=== PATIENT | female | born 1985 ===

== ENCOUNTER 2023-01-28 18:09 | Emergency (ER) | payer OTHER ==
[~2023-01-28] VITALS: Ht 170 cm; Wt 82.0 kg
[2023-01-28 18:17] VITALS: BP 147/85
[2023-01-28] MEDS ORDERED: NS IV 1000 ML 1,000 ML IV STA (18:24)
[2023-01-28] MEDS ORDERED: MECLIZINE 25 MG TABLET PO STA (18:24)
[2023-01-28] MEDS ORDERED: dexAMETHasone INJ 10 MG/ML 1 ML VIAL IV STA (18:24)
[2023-01-28] MEDS ORDERED: KETOROLAC INJ 30 MG/ML VIAL IVP STA (18:24)
[2023-01-28] MEDS ORDERED: ONDANSETRON INJECTION 4 MG/2 ML (SDV) IVP STA (18:24)
--- NOTE | 2023-01-28 18:33 | ED Headache ---
General Chief Complaint: Head/Cervical Problems Stated Complaint: MIGRAINE FOR A MONTH, DIZZY Nursing Triage Note: Patient has presented to ER with cc of a headache for the last month. She reports a migraine for the last month. She went to urgent care last week and received a shot of torodal it helped some but did get rid of the headahce. This past week she has developed a rash on the left side of her face. She has pain in her neck. She has not seen her doctor and went to urgent care this afternoon and was sent to ER for evaluation. Source: patient, RN/MD (Karla Estrada APRN, [facility] called to state patient had been seen Jan 24 for migraine and sinusitis. Treated with Toradol, Augmentin and Prednisone. Now with rash and worse headache with vertigo.) History of Present Illness Date Seen by Provider: Jan 28, 2023 Time Seen by Provider: 18:12 Initial Comments 38-year-old female presenting with complaints of a migraine headache that has been going on for the last month. She rates her pain at 11 or 12 but states that it is a discomfort. She also states that she cannot specifically describe it but just that it hurts. She does have a history of migraine headaches and takes topiramate at night and when she has an acute headache she takes sumatriptan. [facility] on January [facility] and they had given her a Toradol shot as well as prescribed her cyclobenzaprine, Augmentin and prednisone for sinus headache. She states that she has had a rash on the left side of her face since January 19. She states that she has been having pain and stiffness in her neck as well. She did not feel like the Toradol shot did much to help with her headache but felt the prednisone did not seem to help with some facial swelling that she associated with the rash on the left side of her face. She states the rash now has a burning pain and is spread into her hair and scalp. She denies any difficulty with vision but does have photosensitivity. She has had nausea but no vomiting. Since getting treated with the Toradol, cyclobenzaprine, Augmentin, prednisone she has felt like the headache is gotten worse as well as she now is having vertigo symptoms with it. She has an appointment on Thursday to be seen at [facility] but felt like her symptoms were worse today so she went back to walking care. They referred her here to the emergency department since her headache was worse. Timing/Duration: constant, increasing Severity/Quality: severe, constant Location: other (Left-sided) Prior Headaches/Recent Trauma: chronic headaches (History of migraine headaches) Modifying Factors: worse with exposure to light, worse with movement Associated Symptoms: confusion, fatigue, facial pain; No fever/chills, No flushing, No loss of consciousness; nausea/vomiting (Nausea but no vomiting); No nasal congestion, No nasal drainage, No numbness in legs/feet; rash (Vesicular rash on the forehead and scalp on the left side); No seizures, No sinus infection; stiff neck; No vision changes, No weakness Allergies and Home Medications Allergies Coded Allergies: Sulfa (Sulfonamide Antibiotics) (Verified Allergy, Unknown, 01/28/23) Patient Home Medication List Home Medication List Reviewed: Yes Ondansetron (Ondansetron Odt) 4 Mg Tab.rapdis, 4 MG PO Q6H PRN for NAUSEA/VOMITING Prescribed by: SEKOU ABDI on 01/28/231955 Oxycodone HCl/Acetaminophen (Oxycodone-Acetaminophen 5-325) 5 Mg-325 Mg Tablet, 1 EACH PO Q4H PRN for PAIN SEVERE Prescribed by: SEKOU ABDI on 01/28/231956 Valacyclovir HCl (Valacyclovir) 1,000 Mg Tablet, 1,000 MG PO TID Prescribed by: SEKOU ABDI on 01/28/231955 Review of Systems Review of Systems Constitutional: No chills; dizziness (vertigo); No fever Eyes: Denies Blurred Vision; Photophobia Ears, Nose, Mouth, Throat: denies ear pain, denies ear discharge, denies nose pain, denies nose discharge, denies epistaxis Respiratory: No cough Cardiovascular: No chest pain Gastrointestinal: nausea; No vomiting Genitourinary: No dysuria : No Musculoskeletal: see HPI Skin: see HPI, rash (left forehead and scalp) Psychiatric/Neurological: Headache; Denies Numbness, Denies Paresthesia Past [id number] Hx Patient Social History Tobacco Use?: Yes Tobacco type used: Cigarettes Substance use?: No Alcohol Use?: Yes Alcohol Frequency: Once in a while Past Medical History Surgery/Hospitalization HX: Migraine Headaches Physical Exam Vital Signs Vital Signs - First Documented 01/28/23 18:17 Temp 36.8 Pulse 82 Resp 16 B/P (MAP) 147/85 (105) Pulse Ox 98 O2 Delivery Room Air Capillary Refill : Height, Weight, BMI Height: '" Weight: lbs. oz. kg; 28.00 BMI Method: General Appearance: WD/WN, mild distress HEENT: PERRL/EOMI, pharynx normal, photophobia, other (vesicular erythematous rash to left forehead and into scalp. Does not cross the midline or extend onto nose or eye) Neck: full range of motion (has full range of motion but states that she feels like her neck is stiff) Cardiovascular: normal peripheral pulses, regular rate, rhythm Respiratory: chest non-tender, lungs clear, normal breath sounds, no respiratory distress, no accessory muscle use Gastrointestinal: normal bowel sounds, non tender, soft Extremities: normal range of motion, non-tender, normal capillary refill Psychiatric: alert, oriented x 3 Crainal Nerves: normal hearing, normal speech, PERRL Coordination/Gait: normal gait Motor/Sensory: no motor deficit, no sensory deficit Skin: warm/dry, rash (left forehead and scalp, does not cross midline or extend to nose or eye. has erythematous vesicular appearance.) Progress/Results/Core Measures Results/Orders Lab Results Laboratory Tests Test 01/28/23 18:23 01/28/23 18:25 Range/Units White Blood Count 10.9 4.3-11.0 10^3/uL Red Blood Count 4.96 3.80-5.11 10^6/uL Hemoglobin 15.6 11.5-16.0 g/dL Hematocrit 45 35-52 % Mean Corpuscular Volume 91 80-99 fL Mean Corpuscular Hemoglobin 32 25-34 pg Mean Corpuscular Hemoglobin Concent 35 32-36 g/dL Red Cell Distribution Width 12.7 10.0-14.5 % Platelet Count 281 130-400 10^3/uL Mean Platelet Volume 9.8 9.0-12.2 fL Immature Granulocyte % (Auto) 1 % Neutrophils (%) (Auto) 89 H 42-75 % Lymphocytes (%) (Auto) 7 L 12-44 % Monocytes (%) (Auto) 4 0-12 % Eosinophils (%) (Auto) 0 0-10 % Basophils (%) (Auto) 0 0-10 % Neutrophils # (Auto) 9.7 H 1.8-7.8 10^3/uL Lymphocytes # (Auto) 0.7 L 1.0-4.0 10^3/uL Monocytes # (Auto) 0.4 0.0-1.0 10^3/uL Eosinophils # (Auto) 0.0 0.0-0.3 10^3/uL Basophils # (Auto) 0.0 0.0-0.1 10^3/uL Immature Granulocyte # (Auto) 0.1 0.0-0.1 10^3/uL Neutrophils % (Manual) 83 % Lymphocytes % (Manual) 3 % Monocytes % (Manual) 3 % Band Neutrophils 7 % Atypical Lymphocytes 4 % Platelet Estimate ADEQUATE Blood Morphology Comment NORMAL Sodium Level 141 135-145 MMOL/L Potassium Level 4.1 3.6-5.0 MMOL/L Chloride Level 107 98-107 MMOL/L Carbon Dioxide Level 26 21-32 MMOL/L Anion Gap 8 5-14 MMOL/L Blood Urea Nitrogen 13 7-18 MG/DL Creatinine 0.73 0.60-1.30 MG/DL Estimat Glomerular Filtration Rate 107 BUN/Creatinine Ratio 18 Glucose Level 101 70-105 MG/DL Calcium Level 9.0 8.5-10.1 MG/DL Corrected Calcium 8.8 8.5-10.1 MG/DL Total Bilirubin 0.3 0.1-1.0 MG/DL Aspartate Amino Transf (AST/SGOT) 8 5-34 U/L Alanine Aminotransferase (ALT/SGPT) 9 0-55 U/L Alkaline Phosphatase 66 40-136 U/L C-Reactive Protein < 0.30 <0.50 MG/DL Total Protein 7.3 6.4-8.2 GM/DL Albumin 4.3 3.2-4.5 GM/DL Urine Color YELLOW Urine Clarity CLEAR Urine pH 7.0 5-9 Urine Specific [place] 1.015 L 1.016-1.022 Urine Protein NEGATIVE NEGATIVE Urine Glucose (UA) NEGATIVE NEGATIVE Urine Ketones NEGATIVE NEGATIVE Urine Nitrite NEGATIVE NEGATIVE Urine Bilirubin NEGATIVE NEGATIVE Urine Urobilinogen 0.2 < = 1.0 MG/DL Urine Leukocyte Esterase NEGATIVE NEGATIVE Urine RBC (Auto) TRACE-I H NEGATIVE Urine RBC 2-5 H /HPF Urine WBC 0-2 /HPF Urine Squamous Epithelial Cells 5-10 /HPF Urine Crystals NONE /LPF Urine Bacteria NEGATIVE /HPF Urine Casts NONE /LPF Urine Mucus NEGATIVE /LPF Urine Culture Indicated NO My Orders Orders - SEKOU ABDI MD Comprehensive Metabolic Panel (01/28/23 18:22) Ua Culture If Indicated (01/28/23 18:22) Ed Iv/Invasive Line Start (01/28/23 18:22) Cbc And Automated Diff (01/28/23 18:22) Urine Bedside (01/28/23 18:22) Crp Fs (01/28/23 18:22) Ct Head/Maxillofacial Wo (01/28/23 18:24) Ns Iv 1000 Ml (Ns Iv 1000 Ml) (01/28/23 18:24) Ketorolac Injection (Ketorolac Injection (01/28/23 18:24) Ondansetron Injection (Ondansetron Inj (01/28/23 18:24) Dexamethasone Injection (Dexamethasone (01/28/23 18:24) Meclizine Tablet (Meclizine Tablet) (01/28/23 18:24) Manual Differential (01/28/23 18:23) Rx-Ondansetron Po (Rx-Zofran Po) (01/28/23 19:39) Rx-Oxycodone/Apap 5-325 Mg (Rx-Percocet (01/28/23 19:39) Vital Signs/I&O 01/28/23 18:17 Temp 36.8 Pulse 82 Resp 16 B/P (MAP) 147/85 (105) Pulse Ox 98 O2 Delivery Room Air Blood Pressure Mean: 105 Progress Progress Note #1: Progress Note Differential diagnosis includes herpes zoster, herpes encephalitis, herpes meningitis, atypical migraine headache, intracranial hemorrhage, brain tumor, sinusitis. Obtain peripheral IV access and send labs for complete blood count, CRP, comprehensive metabolic profile, urinalysis, bedside urine . CT scan of the head maxillofacial area without contrast to look for acute pathology to be contributing to her symptoms. Administer normal saline 1 L IV fluid bolus for hydration, Toradol 30 mg IV for headache and pain, dexamethasone 10 mg IV for headache and pain, Zofran 4 mg IV for nausea. Patient states that she does not have anybody to give her a ride back to [place] where she lives. She drove herself here to the emergency department. Progress Note #2: Time: 18:45 Progress Note Bedside urine test is negative. Urinalysis had a specific gravity of 1.015 with trace red blood cells. There is no sign of infection. Complete blood count had white blood cell count at upper limit of normal at 10.9. This would go along with her being on steroids recently. Her hemoglobin was normal at 15.6 and platelets 281. 1903 comprehensive metabolic profile did not show any acute electrolyte abnormalities. She had a normal BUN and creatinine 13 and 0.73. Glucose was normal at 101. CRP was less than 0.3 to go against any large inflammatory process. However she has been on steroids since the second as well. I did not appreciate any acute significant abnormalities on my personal interpretation and review of the CT scan of the head and maxillofacial area without IV contrast. Awaiting radiology reading. [address] scan of the head and maxillofacial without IV contrast is no acute process and no sign of sinusitis. Will check on the patient and see if she has had any improvement of her symptoms. Will plan on treating her with antivirals for what appears to be a shingles outbreak. Progress Note #3: Time: 19:30 Progress Note On recheck of the patient she states that her headache is down to maybe a 10. I reviewed with her the results of the CT scan did not show any sinusitis, stroke, mass, bleeding. Her labs had all looked okay as well. However with her continued to have pain she could have encephalitis or meningitis from the shingles and the virus. I discussed the option of getting her admitted so additional testing can be done as well as getting antiviral medications started and controlling her pain and nausea. Patient voiced understanding of this option but did not want to be admitted. I offered to get her some pain medicine and nausea medicine by mouth as well as try and get her started on antivirals here tonight. However, the medications available here in the emergency department did not include any antivirals. In light of that she wanted to try the oral medicines at home. She wanted to try taking the medicine by mouth and see if that would help before she had to be admitted to the hospital. She states that she does have an appointment on Thursday at the [facility] clinic. I counseled her that we could try doing the stronger pain medicine which would be a narcotic as well as a nausea medicine and get her started on antivirals. If she was not any better or felt like her symptoms were worse on Thursday she could have them arrange for additional testing or get her admitted if need be. Will give her a note to be off work at least through Thursday. If she needed more days when she is seen on Thursday she could set that up, and get a new note. Also counseled for symptoms seem to be worsening before she was seen she could always return or call 911 and we could get her admitted to the hospital for additional treatment and testing. Diagnostic Imaging Diagonstic Imaging: CT Plain Films/CT/US/NM/MRI: facial bones, head Comments [facility]. [place], [place] NAME: SAVANAH MYLES [facility] REC#: [id number] PT STATUS: REG ER : 1985 PHYSICIAN: SEKOU ABDI MD ADMIT DATE: 01/28/23/ER FS Draft Date of Exam:01/28/23 CT HEAD/MAXILLOFACIAL WO PROCEDURE: CT head and maxillofacial without contrast. TECHNIQUE: Multiple contiguous axial images were obtained through the head and facial bones without the use of intravenous contrast. Auto Exposure Controls were utilized during the CT exam to meet ALARA standards for radiation dose reduction. INDICATION: Worsening left-sided headache and rash. EXAMINATION: CT brain, CT maxillofacial 01/28/2023 Brain: There is no acute hemorrhage or infarct. No mass, mass effect or midline shift. No hydrocephalus. No fractures identified. Paranasal sinuses and mastoid air cells clear. IMPRESSION: No acute intracranial process. CT maxillofacial: There are no displaced fractures. Temporomandibular joints intact. Visualized cervical spine unremarkable. Paranasal sinuses clear. Visualized mastoid air cells clear. Orbits and post septal spaces unremarkable. IMPRESSION: 1. No acute osseous abnormality. Dictated on workstation # [id number] Dict: 01/28/23 1858 Trans: 01/28/23 1905 TRINI [id number] Interpreted by: ADY TAYLOR MD Electronically signed by: Reviewed: Reviewed by Me Departure Impression Primary Impression: Acute trigeminal herpes zoster Additional Impressions: Left-sided headache Dizziness Disposition: 01 HOME, SELF-CARE Condition: Stable Departure-Patient Inst. Decision time for Depature: 19:53 Referrals: PINKY LARIOS APRN (PCP) Primary Care Physician [facility] (Family) Primary Care Physician Patient Instructions: Dizziness, Adult ED, Headache, Adult ED, Home Headache Remedies, Shingles (DC) Add. Discharge Instructions: Stop taking the Augmentin antibiotic as there is no evidence of sinusitis on your CT scan. While taking the oxycodone or Percocet medication you would want to not take your Flexeril or cyclobenzaprine as the combination would make you very sleepy. Also you should not be driving or operating machinery or equipment while taking the narcotic. If you do have to take the narcotic pain medicine for severe pain try to have something on your stomach to help limit nausea from the medication. It can also cause constipation so you might need to take some MiraLAX or a stimulant laxative to overcome that. Try using the dissolving Zofran nausea tablets to help keep your stomach settled. Try to stay well-hydrated and get some rest. Keep your appointment on Thursday with the [facility] clinic. If your symptoms are not improving or are worsening they may need to refer you to a hospital or arrange for more advanced testing than what is available through the emergency department here in [place] All discharge instructions reviewed with patient and/or family. Voiced understanding. Scripts Ondansetron (Ondansetron Odt) 4 Mg Tab.rapdis 4 MG PO Q6H PRN for NAUSEA/VOMITING for 5 Days, #20 TAB 0 Refills Prov: SEKOU ABDI MD 01/28/23 Oxycodone HCl/Acetaminophen (Oxycodone-Acetaminophen 5-325) 5 Mg-325 Mg Tablet 1 EACH PO Q4H PRN for PAIN SEVERE MDD 6 for 3 Days, #15 TAB 0 Refills Prov: SEKOU ABDI MD 01/28/23 Valacyclovir HCl (Valacyclovir) 1,000 Mg Tablet 1000 MG PO TID for Shingles for 14 Days, #42 TAB 0 Refills Prov: SEKOU ABDI MD 01/28/23 Work/School Note: Work Release Form Date Seen in the Emergency Department: Jan 28, 2023 Return to Work: Jan 31, 2023 Restrictions: Return-No Fever (24hrs), Return-No Vomiting(24hrs) Other Restrictions Listed Below: Return to work Thursday unless severe pain, fever, vomiting. SEKOU ABDI MD Jan 28, 2023 18:33
[2023-01-28 18:42] LABS: BASOPHILS % (AUTO) 0 % (0-10); EOSINOPHILS % (AUTO) 0 % (0-10); HEMATOCRIT 45 % (35-52); HEMOGLOBIN 15.6 g/dL (11.5-16.0); LYMPHOCYTES # (AUTO) 0.7 10^3/uL (1.0-4.0); LYMPHOCYTES % (AUTO) 7 % (12-44); MEAN CORPUSCULAR HEMOGLOBIN 32 pg (25-34); MEAN CORPUSCULAR HGB CONC 35 g/dL (32-36); MEAN CORPUSCULAR VOLUME 91 fL (80-99); MEAN PLATELET VOLUME 9.8 fL (9.0-12.2); MONOCYTES # (AUTO) 0.4 10^3/uL (0.0-1.0); MONOCYTES % (AUTO) 4 % (0-12); NEUTROPHILS # (AUTO) 9.7 10^3/uL (1.8-7.8); NEUTROPHILS % (AUTO) 89 % (42-75); PLATELET COUNT 281 10^3/uL (130-400); WHITE BLOOD COUNT 10.9 10^3/uL (4.3-11.0)
[2023-01-28 18:44] LABS: BILIRUBIN,URINE NEGATIVE (NEGATIVE); CLARITY,URINE CLEAR; COLOR,URINE YELLOW; GLUCOSE, URINE (UA) NEGATIVE (NEGATIVE); KETONES,URINE NEGATIVE (NEGATIVE); LEUKOCYTE ESTERASE ,URINE NEGATIVE (NEGATIVE); NITRITE,URINE NEGATIVE (NEGATIVE); PROTEIN,URINE NEGATIVE (NEGATIVE)
[2023-01-28 18:50] LABS: BACTERIA,URINE NEGATIVE /HPF; WBC,URINE 0-2 /HPF
[2023-01-28 18:59] LABS: ATYPICAL LYMPHOCYTES 4 %; BAND NEUTROPHILS 7 %; LYMPHOCYTES % (MANUAL) 3 %; MONOCYTES % (MANUAL) 3 %; NEUTROPHILS % (MANUAL) 83 %; PLATELET ESTIMATE ADEQUATE; RBC MORPH NORMAL
[2023-01-28 19:00] LABS: ALKALINE PHOSPHATASE 66 U/L (40-136); BILIRUBIN,TOTAL 0.3 MG/DL (0.1-1.0); BUN/CREATININE RATIO 18; CARBON DIOXIDE 26 MMOL/L (21-32); CHLORIDE 107 MMOL/L (98-107); CREATININE SERUM 0.73 MG/DL (0.60-1.30); GFR ESTIMATED 107; GLUCOSE 101 MG/DL (70-105); POTASSIUM 4.1 MMOL/L (3.6-5.0); SODIUM 141 MMOL/L (135-145)
[2023-01-28 19:01] LABS: ALANINE AMINOTRANSFERASE 9 U/L (0-55); ALBUMIN 4.3 GM/DL (3.2-4.5); TOTAL PROTEIN 7.3 GM/DL (6.4-8.2)
--- NOTE | 2023-01-28 19:06 | Diagnostic Imaging Report ---
PROCEDURE: CT head and maxillofacial without contrast. TECHNIQUE: Multiple contiguous axial images were obtained through the head and facial bones without the use of intravenous contrast. Auto Exposure Controls were utilized during the CT exam to meet ALARA standards for radiation dose reduction. INDICATION: Worsening left-sided headache and rash. EXAMINATION: CT brain, CT maxillofacial 01/28/2023 Brain: There is no acute hemorrhage or infarct. No mass, mass effect or midline shift. No hydrocephalus. No fractures identified. Paranasal sinuses and mastoid air cells clear. IMPRESSION: No acute intracranial process. CT maxillofacial: There are no displaced fractures. Temporomandibular joints intact. Visualized cervical spine unremarkable. Paranasal sinuses clear. Visualized mastoid air cells clear. Orbits and post septal spaces unremarkable. IMPRESSION: 1. No acute osseous abnormality. Dictated by: Dictated on workstation # [id number]
[2023-01-28] MEDS ORDERED: RX-OXYCODONE/APAP 5-325 MG #4 TAB PK PO STA (19:39)
[2023-01-28] MEDS ORDERED: RX-ONDANSETRON 4 MG ODT (ZOFRAN) PPK #4 PO STA (19:39)
[2023-01-28] MEDS ORDERED: OXYC1TAB11 PO (19:56)
[2023-01-28] MEDS ORDERED: VALA10007 PO (19:56)
[2023-01-28] MEDS ORDERED: ONDA4TAB11 PO (19:56)
== END 2023-01-28 20:05 | disposition home or self-care (01) ==
LOC: EDUNIT# 18:09 → ER FS 18:11
DX: R51.9 Headache, unspecified (principal); R42 Dizziness and giddiness; B02.22 Postherpetic trigeminal neuralgia; R11.0 Nausea; R21 Rash and other nonspecific skin eruption
CPT/HCPCS: 36415; 70450; 70486; 80053; 81000; 84703; 85007; 85027; 86141